=== PATIENT | male | born 1995 | race Caucasian/White ===

== ENCOUNTER 2021-09-19 09:25 | Outpatient (CLI) | payer OTHER, SELFPAY ==
--- NOTE | ~2021-09-19 | MR_ITS ---
EXAMINATION: MR brain/brain stem wo/w con DATE: 09/19/2021 11:26 CDT INDICATION: Dizziness. Headaches. TECHNIQUE: Magnetic resonance imaging (MRI) of the brain and brainstem was performed without intraven ous contrast. Sequences included sagittal and axial T1-weighted SE, axial diffusion-weighted FS SE, a xial T2*-weighted GRE, axial T2-weighted FLAIR Propeller, and axial T2-weighted Propeller. Apparent d iffusion coefficient (ADC) maps were created. COMPARISON: No prior studies for comparison. FINDINGS: The brain volume and ventricular system are within normal limits. The brain parenchymal si gnal intensity pattern and sales/white matter is normal and there is no evidence of hemorrhage, space occupying masses or infarctions. The flow signal voids of the major arterial structures about the koi of [place] and within the manuelito r dural venous sinuses appear grossly unremarkable and patent. The seventh and eighth cranial nerve complexes are normal. The mid sagittal image demonstrates a normal craniovertebral junction and liborio us callosum. The paranasal sinuses are grossly unremarkable. No abnormal contrast enhancement was appreciated. IMPRESSION: 1: Unremarkable MRI of the brain. Reviewed, dictated and finalized at location A.
[2021-09-19 10:08] LABS: Estimated Glomerular Filt Rate > 60
== END 2021-09-19 09:26 | disposition home or self-care (01) ==
PROVIDERS: PCP Internal Medicine; Visit Provider Internal Medicine
DX: R51.9 Headache, unspecified (principal); R42 Dizziness and giddiness
CPT/HCPCS: 70553; A9577

== ENCOUNTER 2021-12-15 09:48 | Outpatient (CLI) | payer OTHER, SELFPAY ==
--- NOTE | 2021-12-15 09:56 | EST_ITS ---
Patient Info Name: Javier Quick Age: 26 years : 1995 Gender: Male Ht: 76 in Wt: 223 lbs BSA: 2.34 m2 HR: 74 bpm BP: 116 / 86 mmHg Heart Rhythm: Sinus Rhythm Exam Date: 12/15/2021 10:05 AM Exam Location: [facility] Stress Patient Status: Outpatient Admit Date: 12/15/2021 Staff Ordering Physician: Jeremi Jamil DO Attending Provider: Jeremi Jamil DO Exercise Technologist: Larissa Gifford CT Exercise Physician: Jeremi Jamil DO Exam Type: CA stress test treadmill Study Info Indications R07.9 - Chest pain, unspecified A treadmill exercise stress test was performed. Summary 1. 1. Negative Kodak exercise stress test for ischemic ST changes by ECG criteria. 2. 2. Reduced functional capacity, achieving 10 METs of workload. 3. 3. Appropriate HR response to exercise. 4. 4. Appropriate HR recovery at 1 minute post exercise. 5. 5. Hypertensive response to exercise. 6. 6. No imaging with stress testing. 7. 7. Patient informed of the above results. Protocol: Kodak Stress ECG Details Stage: REST Duration (min): 1 min : 25 sec Speed (mph): 0.0 Grade (%): 0 HR (bpm): 77 SBP (mmHg): 116 DBP (mmHg): 86 METS: --- Stage: REST Duration (min): 6 min : 23 sec Speed (mph): 0.0 Grade (%): 0 HR (bpm): 86 SBP (mmHg): 116 DBP (mmHg): 86 METS: --- Stage: STAGE 1 Duration (min): 1 min : 0 sec Speed (mph): 1.7 Grade (%): 10 HR (bpm): 119 SBP (mmHg): 116 DBP (mmHg): 86 METS: --- Stage: STAGE 1 Duration (min): 2 min : 0 sec Speed (mph): 1.7 Grade (%): 10 HR (bpm): 122 SBP (mmHg): 116 DBP (mmHg): 86 METS: --- Stage: STAGE 1 Duration (min): 3 min : 0 sec Speed (mph): 1.7 Grade (%): 10 HR (bpm): 126 SBP (mmHg): 144 DBP (mmHg): 69 METS: --- Stage: STAGE 2 Duration (min): 1 min : 0 sec Speed (mph): 2.5 Grade (%): 12 HR (bpm): 134 SBP (mmHg): 144 DBP (mmHg): 69 METS: --- Stage: STAGE 2 Duration (min): 2 min : 0 sec Speed (mph): 2.5 Grade (%): 12 HR (bpm): 142 SBP (mmHg): 162 DBP (mmHg): 69 METS: --- Stage: STAGE 2 Duration (min): 3 min : 0 sec Speed (mph): 2.5 Grade (%): 12 HR (bpm): 148 SBP (mmHg): 162 DBP (mmHg): 69 METS: --- Stage: STAGE 3 Duration (min): 1 min : 0 sec Speed (mph): 3.4 Grade (%): 14 HR (bpm): 165 SBP (mmHg): 160 DBP (mmHg): 58 METS: --- Stage: STAGE 3 Duration (min): 2 min : 0 sec Speed (mph): 3.4 Grade (%): 14 HR (bpm): 174 SBP (mmHg): 160 DBP (mmHg): 58 METS: --- Stage: STAGE 3 Duration (min): 3 min : 0 sec Speed (mph): 3.4 Grade (%): 14 HR (bpm): 178 SBP (mmHg): 172 DBP (mmHg): 78 METS: --- Stage: STAGE 4 Duration (min): 0 min : 3 sec Speed (mph): 4.2 Grade (%): 16 HR (bpm): 179 SBP (mmHg): 172 DBP (mmHg): 78
== END 2021-12-15 09:49 | disposition home or self-care (01) ==
PROVIDERS: PCP Internal Medicine; Visit Provider Internal Medicine Cardiovascular Disease
DX: R07.9 Chest pain, unspecified (principal)
CPT/HCPCS: 93017

== ENCOUNTER 2022-07-08 15:07 | Emergency (ER) | payer OTHER, SELFPAY ==
--- NOTE | 2022-07-08 16:42 | PC.NURSE ---
pt asking Do I have time to leave for a bit? . Pt informed that by leaving our premises he would be removed from waitlist and if he were to return he would start process over. pt reports he is just going to leave then . pt amb out of ed with steady gait and in no acute distress.
== END 2022-07-08 16:05 | disposition left against medical advice (07) ==
PROVIDERS: PCP Physician Assistant Medical
DX: Z53.21 Procedure and treatment not carried out due to patient leaving prior to being seen by health care provider (principal)
CPT/HCPCS: 99199

== ENCOUNTER 2023-07-08 12:53 | Outpatient (CLI) | payer OTHER, SELFPAY | END 2023-07-08 12:54 | disposition home or self-care (01) | LOC: ANHAUDASC 12:54 | PROVIDERS: Visit Provider Physician Assistant Medical | DX: H91.91 Unspecified hearing loss, right ear (principal) | CPT/HCPCS: 92557; 92567 ==

== ENCOUNTER 2023-07-12 11:08 | Outpatient (CLI) | payer OTHER, SELFPAY ==
--- NOTE | ~2023-07-12 | US_ITS ---
EXAMINATION: US carotid duplex BI DATE: 07/12/2023 12:11 INDICATION: Unspecified hearing loss, right ear. TECHNIQUE: Grayscale, color Doppler, and pulsed Doppler images of the cervical carotid arteries were obtained. The degree of vessel stenosis is placed in one of the following categories: normal, <50%, 5 0-69%, >=70% but less than near-occlusion, near-occlusion, or total occlusion. Note that percent sten osis relative to normal distal artery lumen diameter is indirectly measured from velocity measurement s as described by Sandro, et al. Radiology 2003; 229:340-346. COMPARISON: None. FINDINGS: RIGHT: The right common carotid artery (CCA) peak systolic velocity (PSV) is 100 cm/s. The right internal ca rotid artery (ICA) PSV is 70 cm/s. The right ICA end-diastolic velocity (EDV) is 25 cm/s. The right I CA/CCA PSV ratio is 0.7. Grayscale and color Doppler images yield an estimate of 0% diameter reductio n from plaque in the ICA. There is antegrade flow in the right vertebral artery. LEFT: The left CCA PSV is 102 cm/s. The left ICA PSV is 85 cm/s. The left ICA EDV is 40 cm/s. The left ICA/ CCA PSV ratio is 0.8. Grayscale and color Doppler images yield an estimate of 0% diameter reduction f rom plaque in the ICA. There is antegrade flow in the left vertebral artery. IMPRESSION: 1. Normal internal carotid arteries. Reviewed, dictated and finalized at location A. VERY DEPARTMENT SUPERVISOR
--- NOTE | ~2023-07-12 | MR_ITS ---
EXAMINATION: MR IAC wo con DATE: 07/12/2023 11:48 INDICATION: Right-sided tinnitus. Unspecified hearing loss, right ear. TECHNIQUE: Magnetic resonance imaging (MRI) of the brain, brainstem, and internal auditory canals was performed without intravenous contrast. COMPARISON: Brain MRI 09/19/2021 FINDINGS: There is no intracranial hemorrhage, acute infarction, or abnormal intracranial mass lesion . The ventricles are normal in size. The paranasal sinuses are clear. The orbits are normal. The mast oid air cells are normal. The internal auditory canals, inner ears, and tympanic cavities are normal. The mastoid air cells are normal. IMPRESSION: 1. Normal brain. Reviewed, dictated and finalized at location A. JOINER IMPRESSION: 1. Normal brain.
== END 2023-07-12 11:09 ==
LOC: MICIMG 11:10
PROVIDERS: PCP Physician Assistant Medical; Visit Provider Physician Assistant Medical
DX: H91.91 Unspecified hearing loss, right ear (principal)
CPT/HCPCS: 70551; 93880

== ENCOUNTER 2024-09-19 13:35 | Outpatient (CLI) | payer OTHER, SELFPAY ==
--- OUTSIDE RECORDS SUMMARY | 2024-09-19 15:09 | XMS_ITS | Clinical Summary ---
Author Organization [facility] Address [facility] [place] [address] Care Team Providers Care Pediatrics Hospitalist Name Role Phone Madison Deal PA-C Primary Care Provider [phone] Allergies No known active allergies Medications escitalopram 10 MG tablet Take 1 tablet (10 mg total) by mouth daily. Active ondansetron (ZOFRAN-ODT) 4 MG disintegrating tablet Take 1 tablet (4 mg total) by mouth every 8 (eight) hours as needed for Nausea. 20 tablet 3 Active pantoprazole EC (PROTONIX) 40 MG tablet Take 1 tablet (40 mg total) by mouth daily. 30 tablet 3 Active sucralfate (CARAFATE) 1 G tablet Take 1 tablet (1 g total) by mouth 4 (four) times daily before meals and nightly. 120 tablet 3 Active Active Problems No known active problems Social History Tobacco Use Types Packs/Day Years Used Date Smoking Tobacco: Former Cigarettes Tobacco Cessation:Counseling Given: Not Answered Alcohol Use Standard Drinks/Week Comments Yes 13.3 (1 standard drink = 0.6 oz pure alcohol) social Sex and Gender Information Value Date Recorded Sex Assigned at Not on file Legal Sex Male 6:46 PM CDT Gender Identity Not on file Sexual Orientation Not on file Last Filed Vital Signs Vital Sign Reading Time Taken Comments Blood Pressure 124/78 04/25/2024 5:15 PM CDT Pulse 89 04/25/2024 5:15 PM CDT Temperature 36.7 C (98.1 F) 04/25/2024 5:15 PM CDT Respiratory Rate 16 04/25/2024 5:15 PM CDT Oxygen Saturation 98% 04/25/2024 5:15 PM CDT Inhaled Oxygen Concentration - - Weight 105.7 kg (233 lb) 04/25/2024 3:48 PM CDT Height 193 cm (6' 4 ) 04/25/2024 3:48 PM CDT Body Mass Index 28.36 04/25/2024 3:48 PM CDT Plan of Treatment Health Maintenance Due Date Last Done Comments Annual Physical 2000 HPV Vaccines (1 - Male 3-dos e series) 2012 Hepatitis C 11/13/2015 DTaP, Tdap and Td Vaccines ( 1 - Tdap) 2016 Hepatitis B Vaccines (1 of 3 - 19+ 3-dose series) 2016 COVID-19 Vaccine (3 - 2023-2 5 season) 2024 12/11/2020, 11/18/2020 Influenza Adult (#1) 2024 PHQ-2 (Physician [place]) 07/04/2024 Meningococcal Vaccine Completed 01/06/2015 Meningococcal B Vaccine Aged Out No l onger eligible based on patient's age to complete this topic Pneumococcal Vaccine: Pediatrics (0 to 5 Years) and At-Risk Patients (6 to 64 Years) Aged Out No longer eligible b ased on patient's age to complete this topic RSV Immunizations Under 20 Months Aged Out No longer eligible b ased on patient's age to complete this topic Insurance Care Teams Pediatrics Hospitalist Relationship Specialty Start Date End Date Madison Deal PA-C [address] [place] [address] [address] [place] [address] PCP - General PHYSICIAN WELL LOGGING CAPTAIN 04/25/24
--- OUTSIDE RECORDS SUMMARY | 2024-09-19 15:09 | XMS_ITS | Clinical Summary ---
Author Organization [facility] Address [address] [place] [address] Care Team Providers Care Production Mechanic Tin Cans Name Role Phone Bryson Flores MD Primary Care Provider [phone] Source Comments [facility],non-owned Affiliates and Associated Physician Practices is amultiple site organization consisting of ambulatory clinics and hospital sitesin [place], [place], [place] and [place]. This disclosure is being madepursuant to the Care Everywhere program and may not contain all information available regarding this patient. Last updated 18.[facility] Allergies No known active allergies Medications * Be aware that medications may not be up to date on this document. Alwaysverify current medications with the patient. Medication Sig Dispensed Refills Start Date End Date Status hydrOXYzine hcl (ATARAX) 25 MG tabletIndications:G AD (generalized anxiety disorder),MDD (major depressive disorder), recurrent episode, moderate (HCC) Take 1 tablet by mouth 3 times daily as needed (anxiety) 90 tablet 03/23/2018 Active escitalopram (LEXAPRO) 20 MG tabletIndications:M ajor Depressive Disorder Take 1 tablet by mouth every morning Reasons: Major Depressive Disorder 30 tablet 2 05/31/2018 Active ARIPiprazole (ABILIFY) 5 MG tabletIndications:G AD (generalized anxiety disorder),MDD (major depressive disorder), recurrent episode, moderate (HCC) Take 1 tablet by mouth once daily 30 tablet 2 05/31/2018 Active LORazepam (ATIVAN) 1 MG tabletIndications:M DD (major depressive disorder), recurrent episode, moderate (HCC),PRISCILLA (generalized anxiety disorder) Take 1 tablet by mouth as directed Take 1 tablet at 5pm 30 tablet 2 05/31/2018 Active Active Problems Problem Noted Date Diagnosed Date MDD (major depressive disord er), recurrent episode, moderate 01/02/2018 PRISCILLA (generalized anxiety disorder) 01/02/2018 Social History Tobacco Use Types Packs/Day Years Used Date Smoking Tobacco: Never Smokeless Tobacco: Never Tobacco Cessation:Counseling Given: No Alcohol Use Standard Drinks/Week Comments Yes 8 (1 standard drink = 0.6 oz pur e alcohol) Sex and Gender Information Value Date Recorded Sex Assigned at Not on file Gender Identity Not on file Sexual Orientation Not on file Last Filed Vital Signs Vital Sign Reading Time Taken Comments Blood Pressure 113/82 05/31/2018 8:32 AM ROD FINISHER Pulse 71 05/31/2018 8:32 AM ROD FINISHER Temperature - - Respiratory Rate - - Oxygen Saturation 97% 12/01/2017 12:41 PM CDT Inhaled Oxygen Concentration - - Weight 104.3 kg (230 lb) 05/31/2018 8:32 AM ROD FINISHER Height 193 cm (6' 4 ) 01/19/2018 3:32 PM CDT Body Mass Index 28 01/19/2018 3:32 PM CDT Plan of Treatment Health Maintenance Due Date Last Done Comments HIV SCREENING 2012 HPV VACCINE (1 - Male 3-dose series) 2012 HEPATITIS C SCREENING 11/08/2015 DTAP/TDAP/TD VACCINES (1 - Tdap) 2016 HEPATITIS B VACCINE (1 of 3 - 19+ 3-dose series) 2016 COVID-19 VACCINE ( - 2023-2 5 season) 2024 INFLUENZA VACCINE (#1) 2024 DEPRESSION SCREENING 07/04/2024 ZOSTER VACCINE (1 of 2) 11/13/2047 HIB VACCINE Aged Out No longer eligi ble based on patient's age to complete this topic MENINGOCOCCAL (Group B) VACC INE SHARED DECISION-MAKING Aged Out No longer eligibl e based on patient's age to complete this topic MENINGOCOCCAL GROUPS A/C/Y/W VACCINE Aged Out No longer eligible b ased on patient's age to complete this topic PNEUMOCOCCAL VACCINE Aged Out No long er eligible based on patient's age to complete this topic Care Teams Production Mechanic Tin Cans Relationship Specialty Start Date End Date Bryson Flores MD [address] [place] [id number] PCP - General 12/01/17
== END 2024-09-19 13:36 | disposition home or self-care (01) ==
PROVIDERS: PCP Physician Assistant Medical; Visit Provider Physician Assistant Medical
DX: R94.31 Abnormal electrocardiogram [ECG] [EKG] (principal); R42 Dizziness and giddiness; R07.9 Chest pain, unspecified
CPT/HCPCS: 93242

== ENCOUNTER 2024-10-10 10:09 | Outpatient (CLI) | payer OTHER, SELFPAY ==
--- NOTE | 2024-10-10 10:30 | EST_ITS ---
Patient Info Name: Javier Quick Age: 28 years : 1995 Gender: Male Ht: 76 in Wt: 220 lbs BSA: 2.32 m2 HR: 75 bpm BP: 125 / 91 mmHg Exam Date: 10/10/2024 10:40 AM Exam Location: [facility] Patient Status: Outpatient Admit Date: 10/10/2024 Staff Ordering Physician: Jeremi Jamil DO Attending Provider: Jeremi Jamil DO Exercise Technologist: tracie mar Exercise Physician: Jeremi Jamil DO Exam Type: CA stress test treadmill Study Info Indications R07.9 - Chest pain, unspecified A treadmill exercise stress test was performed. Summary 1. 1. Negative Kodak exercise stress test for ischemic ST changes by ECG criteria. 2. 2. Good functional capacity, achieving 11 METs of workload. 3. 3. Hypertensive response to exercise. 4. 4. Appropriate HR response to exercise. 5. 5. Appropriate HR recovery at 1 minute post exercise. 6. 6. No imaging with stress testing. 7. 7. Patient informed of the above results. Protocol: Kodak Stress ECG Details Stage: REST Duration (min): 2 min : 28 sec Speed (mph): 0.0 Grade (%): 0 HR (bpm): 68 SBP (mmHg): 125 DBP (mmHg): 91 METS: --- Stage: REST Duration (min): 9 min : 57 sec Speed (mph): 0.0 Grade (%): 0 HR (bpm): 72 SBP (mmHg): 125 DBP (mmHg): 91 METS: --- Stage: STAGE 1 Duration (min): 1 min : 0 sec Speed (mph): 1.7 Grade (%): 10 HR (bpm): 103 SBP (mmHg): 125 DBP (mmHg): 91 METS: --- Stage: STAGE 1 Duration (min): 2 min : 0 sec Speed (mph): 1.7 Grade (%): 10 HR (bpm): 105 SBP (mmHg): 125 DBP (mmHg): 91 METS: --- Stage: STAGE 1 Duration (min): 3 min : 0 sec Speed (mph): 1.7 Grade (%): 10 HR (bpm): 112 SBP (mmHg): 168 DBP (mmHg): 85 METS: --- Stage: STAGE 2 Duration (min): 1 min : 0 sec Speed (mph): 2.5 Grade (%): 12 HR (bpm): 122 SBP (mmHg): 168 DBP (mmHg): 85 METS: --- Stage: STAGE 2 Duration (min): 2 min : 0 sec Speed (mph): 2.5 Grade (%): 12 HR (bpm): 131 SBP (mmHg): 168 DBP (mmHg): 85 METS: --- Stage: STAGE 2 Duration (min): 3 min : 0 sec Speed (mph): 2.5 Grade (%): 12 HR (bpm): 135 SBP (mmHg): 166 DBP (mmHg): 58 METS: --- Stage: STAGE 3 Duration (min): 1 min : 0 sec Speed (mph): 3.4 Grade (%): 14 HR (bpm): 144 SBP (mmHg): 198 DBP (mmHg): 60 METS: --- Stage: STAGE 3 Duration (min): 2 min : 0 sec Speed (mph): 3.4 Grade (%): 14 HR (bpm): 160 SBP (mmHg): 198 DBP (mmHg): 60 METS: --- Stage: STAGE 3 Duration (min): 3 min : 0 sec Speed (mph): 3.4 Grade (%): 14 HR (bpm): 169 SBP (mmHg): 218 DBP (mmHg): 60 METS: --- Stage: STAGE 4 Duration (min): 0 min : 30 sec Speed (mph): 4.2 Grade (%): 16 HR (bpm): 175 SBP (mmHg): 218 DBP (mmHg): 60 METS: --- Stage: RECOVERY Duration (min): 0 min : 29 sec Speed (mph): 0.0 Grade (%): 0 HR (bpm): 175 SBP (mmHg): 218 DBP (mmHg): 60 METS: --- Stage: RECOVERY Duration (min): 1 min : 29 sec Speed (mph): 0.0 Grade (%): 0 HR (bpm): 134 SBP (mmHg): 218 DBP (mmHg): 60 METS: --- Stage: RECOVERY Duration (min): 2 min : 29 sec Speed (mph): 0.0 Grade (%): 0 HR (bpm): 112 SBP (mmHg): 218 DBP (mmHg): 60 METS: --- Stage: RECOVERY Duration (min): 3 min : 14 sec Speed (mph): 0.0 Grade (%): 0 HR (bpm): 105 SBP (mmHg): 155 DBP (mmHg): 68 METS: --- Rest HR: 72 bpm Peak HR: 177 bpm Rest Sys BP: 125 mmHg Peak Sys BP: 218 mmHg Max Pred HR: 194 bpm % Max Pred HR: 91 % Target HR: 165 bpm Max RPP: 38,586 bpm*mmHg Sahni Score: -4 BP Response: Patient exhibited a hypertensive response with stress Termination Reason: Reached target heart rate or workload Cardiac Symptoms: Shortness of breath Max ST Seg Deviation: 2.80 mm Total Time: 9 min : 30 sec Rest Serrano BP: 91 mmHg Peak Serrano BP: 60 mmHg Angina Score: None Total METS: 11.2 Resting ECG Sinus rhythm. Stress ECG No ST changes. Arrhythmias None. Report Signatures
--- OUTSIDE RECORDS SUMMARY | 2024-10-10 11:26 | XMS_ITS | Clinical Summary ---
Author Organization [facility] [place] [address] Care Team Providers Care Pediatric Immunologist Name Role Phone Madison Deal PA-C Primary Care Provider [phone] Allergies No known active allergies Medications escitalopram [...] - 2023-2 5 season) 2024 12/11/2020, 11/18/2020 PHQ-2 (Physician [place]) 07/04/2024 Meningococcal Vaccine Completed 01/06/2015 Meningococcal B [...] to complete this topic Insurance Care Teams Pediatric Immunologist Relationship Specialty Start Date End Date Madison Deal PA-C [address] [place] [address] [address] [place] [address] PCP - General PHYSICIAN HEALTH AND SAFETY TRAINER 04/25/24
--- OUTSIDE RECORDS SUMMARY | 2024-10-10 11:26 | XMS_ITS | Clinical Summary ---
Author Organization [facility] Address [address] [place] [address] Care Team Providers Care Health Data Administrator Name Role Phone Bryson Flores MD Primary Care Provider [phone] [facility],non-owned Affiliates and Associated Physician Practices is amultiple site organization consisting of ambulatory clinics and hospital sitesin [place], [place], [place] and [place]. This disclosure is being madepursuant to the Care Everywhere program and may not contain all information available regarding this patient. Last updated 18.[facility] Allergies No known active allergies Medications * [...] Comments Blood Pressure 113/82 05/31/2018 8:32 AM CHEMICAL TANK WORKER Pulse 71 05/31/2018 8:32 AM CHEMICAL TANK WORKER Temperature - - Respiratory Rate - - Oxygen Saturation 97% 12/01/2017 12:41 PM CDT Inhaled Oxygen Concentration - - Weight 104.3 kg (230 lb) 05/31/2018 8:32 AM CHEMICAL TANK WORKER Height 193 cm (6' 4 ) 01/19/2018 3:32 PM CDT Body Mass Index 28 01/19/2018 3:32 PM CDT Plan of Treatment Health Maintenance Due Date Last Done Comments HIV SCREENING 2012 HPV VACCINE (1 - Male 3-dose series) 2012 HEPATITIS C SCREENING 11/08/2015 DTAP/TDAP/TD VACCINES (1 - Tdap) 2016 HEPATITIS B VACCINE (1 of 3 - 19+ 3-dose series) 2016 COVID-19 VACCINE (1 - 2023-2 5 season) 2024 DEPRESSION SCREENING 07/04/2024 INFLUENZA VACCINE (Season Ended) 2025 ZOSTER VACCINE (1 of 2) 11/13/2047 HIB [...] age to complete this topic Care Teams Health Data Administrator Relationship Specialty Start Date End Date Bryson Flores MD [address] [place] [id number] PCP - General 12/01/17
== END 2024-10-10 10:10 | disposition home or self-care (01) ==
PROVIDERS: PCP Physician Assistant Medical; Visit Provider Internal Medicine Cardiovascular Disease
DX: R07.9 Chest pain, unspecified (principal)
CPT/HCPCS: 93017

== ENCOUNTER 2024-12-25 13:55 | Outpatient (CLI) | payer OTHER, SELFPAY ==
--- NOTE | ~2024-12-25 | US_ITS ---
Ankle Brachial Index with Ultrasound Dopplers and Pulse Volume Recordings Technique: Pressures in the arm and lower extremity were obtained. Additionally, arterial and pulse v olume waveforms were obtained bilaterally. Findings: Segmental pressures Right lower thigh: 119 Right calf: 129 Right posterior tibial: 137 Right dorsalis pedis: 116 Left lower thigh: 131 Left calf: 106 Left posterior tibial: 137 Left dorsalis pedis: 99 There are biphasic and triphasic waveforms bilaterally. SHIRA Right 1.26 Left 1.26 TBI Right 0.86 Left 0.58 Impression: Normal SHIRA bilaterally Reviewed, dictated and finalized at location A. Impression: Normal SHIRA bilaterally
== END 2024-12-25 13:56 | disposition home or self-care (01) ==
PROVIDERS: PCP Physician Assistant Medical; Visit Provider Internal Medicine Cardiovascular Disease
DX: I73.9 Peripheral vascular disease, unspecified (principal)
CPT/HCPCS: 93923

== ENCOUNTER 2025-06-11 12:50 | Outpatient (CLI) | payer OTHER, SELFPAY ==
--- NOTE | ~2025-06-11 | US_ITS ---
US abdomen limited Indication: R10.11 - Right upper quadrant pain Comparison: None Technique: Christina-scale and color Doppler images were obtained. Findings: LIVER: Unremarkable, liver contours intact, no lesions. Normal echogenicity. . GALLBLADDER/BILIARY: Unremarkable.No cholelithiais, wall thickening or pericholecystic fluid. No biliary dilatation. CBD 3.1 mm. [place] sign negative. PANCREAS: Unremarkable. Right Kidney: The right kidney was not imaged. Impression: No acute abnormality. Reviewed, dictated and finalized at location P. TICE PERFORMANCE MANAGER Impression: No acute abnormality.
== END 2025-06-11 12:51 | disposition home or self-care (01) ==
LOC: MICIMG 12:51
PROVIDERS: PCP Nurse Practitioner Family; Visit Provider Nurse Practitioner Family
DX: R10.11 Right upper quadrant pain (principal); Z87.898 Personal history of other specified conditions
CPT/HCPCS: 76705